=== PATIENT | female | born 1985 | race Caucasian/White ===

== ENCOUNTER 2024-05-10 01:38 | Emergency (ER) | payer OTHER, SELFPAY ==
[2024-05-10] VITALS (15 sets, daily range): BP systolic 126–178; BP diastolic 74–93; PULSE 72–94; O2SAT 96–100; BMI 29.2
--- NOTE | 2024-05-10 01:36 | ED.ABDPAIN ---
HPI - Abdominal Pain General Chief Complaint: Medical Clearance Stated Complaint: Fit for prison / 8 days post Time Seen by Provider: 05/10/24 01:55 History of Present Illness HPI narrative: Patient is a 39-year-old female with 4 C sections presenting to day by police for fit for prison. Reports that she was having burning in her scar. She is still having vaginal bleeding but reports that it is getting better. She has a history of polysubstance use had preeclampsia during this baby was delivered at 36 weeks currently still in the NICU. Records from [facility] reviewed patient was admitted May 01 with pre-eclampsia and lower extremity swelling. History of methadone use she was positive for fentanyl and amphetamine in her drug screen. She was given Mag and betamethasone. Does appear that she was prescribed nifedipine 30 mg Related Data Home Medications Medication Instructions Recorded Confirmed citalopram 20 mg tablet 20 mg PO QDAY ##0 06/13/10 Patient History Social History Smoking Status: Current every day smoker Exam Initial Vital Signs Initial Vital Signs: Vital Signs Pulse Rate 93 H 05/10/24 01:53 Pulse Oximetry 100 05/10/24 01:53 GENERAL: Alert 39-year-old disheveled female and in no acute distress. HEENT: Head atraumatic,EOMI, pupils reactive, face symmetric, moist mucous membranes CARDIOVASCULAR: Regular rate and rhythm without murmurs, rubs or gallops. RESPIRATORY: Breath sounds equal bilaterally, no wheezes rales or rhonchi. ABDOMEN: Soft, nontender. Normoactive bowel sounds all 4 quadrants. No guarding or rebound. EXTREMITIES: Normal range of motion, no clubbing or edema. Neurovascularly intact NEUROLOGICAL: Alert and oriented x4.Normal gait and speech. SKIN: incision noted with bandage still no significant drainage or erythema Course Orders Ordered: ED Orders 05/10/24 01:45 CBC Auto Diff [Complete Blood Count AUTO DIFF] Stat CMP [Comprehensive Metabolic Panel] Stat LDH [Lactate Dehydrogenase] Stat Uric Acid Stat 05/10/24 02:30 Protein Creatinine Ratio Urine Stat UA Complete [Urinalysis and Microscopic] Stat Urine Culture Stat Urine Drug Screen, Rapid Stat Discontinued Medications Labetalol HCl (Labetalol 20 Mg/4 Ml Syringe) 10 mg IV NOW ONE Stop: 05/10/24 02:31 Last Admin: 05/10/24 02:46 Dose: Not Given Documented By: Nifedipine (Nifedipine 30 Mg Tab Er) 30 mg PO NOW ONE Stop: 05/10/24 04:17 Vital Signs Vital signs: Vital Signs - 8 hr 05/10/24 01:53 05/10/24 01:54 05/10/24 01:54 Pulse Rate 93 H 83 Blood Pressure 167/90 H Pulse Oximetry 100 100 05/10/24 02:00 05/10/24 02:00 05/10/24 02:26 Pulse Rate 94 H Blood Pressure 163/92 H 154/92 H Pulse Oximetry 98 05/10/24 02:26 05/10/24 02:28 05/10/24 02:28 Pulse Rate 89 87 Blood Pressure 178/93 H Pulse Oximetry 97 99 05/10/24 02:32 05/10/24 02:33 05/10/24 02:33 Pulse Rate 83 82 Blood Pressure 168/87 H Pulse Oximetry 100 100 05/10/24 02:40 05/10/24 02:45 05/10/24 02:45 Pulse Rate 74 79 Blood Pressure 136/76 Pulse Oximetry 97 97 05/10/24 02:50 05/10/24 03:00 05/10/24 03:00 Pulse Rate 72 77 Blood Pressure 141/78 H Pulse Oximetry 98 96 05/10/24 03:10 05/10/24 03:20 05/10/24 03:25 Pulse Rate 80 72 76 Blood Pressure Pulse Oximetry 97 98 98 05/10/24 03:26 Pulse Rate Blood Pressure 126/74 Pulse Oximetry MDM - Abdominal Pain Lab Data 05/10/24 01:45 05/10/24 01:45 Labs: Lab Results 05/10/24 05/10/24 05/10/24 Range/Units 01:45 02:30 02:30 WBC 10.6 (4.5-11.0) X10^3/uL RBC 4.21 (4.0-5.2) X10^6/uL Hgb 13.4 (12.0-16.0) g/dL Hct 38.4 (36-46) % MCV 91.2 (80-100) fL MCH 31.7 (26-34) PG MCHC 34.8 (30-36) % RDW 13.1 (11.6-14.8) % Plt Count 319 (150-400) X10^3/uL Neut % (Auto) 76.4 H (50-75) % Lymph % (Auto) 16.4 L (25-40) % [place] % (Auto) 5.2 (3-14) % Eos % (Auto) 1.3 L (2-4) % Baso % (Auto) 0.7 (0-2) % Neut # (Auto) 8100 H (7107-2165) /uL Lymph # (Auto) 1700 (7273-4964) /uL [place] # (Auto) 600 (0-900) /uL Eos # (Auto) 100 (0-450) /uL Baso # (Auto) 100 (0-100) /uL Sodium 137 (137-145) mmol/L Potassium 3.8 (3.4-5.1) mmol/L Chloride 104 (98-107) mmol/L Carbon Dioxide 27 (22-32) mmol/L BUN 17 (7-17) mg/dL Creatinine 0.60 (0.52-1.04) mg/dL Estimated GFR > 60 (>60) mL/min BUN/Creatinine Ratio 28.3 H (6-22) Glucose 102 H (70-100) mg/dL Uric Acid 3.6 (2.5-6.2) mg/dL Calcium 9.4 (8.4-10.2) mg/dL Total Bilirubin 0.3 (0.2-1.3) mg/dL AST 31 (14-36) IU/L ALT 25 (<35) IU/L Alkaline Phosphatase 106 (38-126) U/L Lactate Dehydrogenase 273 H (120-246) U/L Total Protein 7.1 (6.3-8.2) g/dL Albumin 3.9 (3.5-5.0) g/dL Globulin 3.2 (1.7-4.1) g/dL Albumin/Globulin Ratio 1.2 (1.0-2.8) Urine Color Yellow Urine Appearance Clear Urine pH 7.5 Normal (4.5-8.0) Ur Specific [place] 1.020 (1.000-1.035) Urine Protein Trace H (Negative) Urine Glucose (UA) Negative (Negative) g/dL Urine Ketones Negative (NEGATIVE) Urine Occult Blood 3+ H (Negative) Urine Nitrate Negative (Negative) Urine Bilirubin Negative (NEGATIVE) Urine Urobilinogen 1.0 (0.2) E.U./dL Ur Leukocyte Esterase 1+ H (NEGATIVE) Urine RBC 1-5/hpf (0-5/HPF) Urine WBC 1-5/hpf (0-5/HPF) Ur Squamous Epith Cells 10-30 /hpf H (0-5/HPF) Urine Bacteria Moderate (10-30) H (None) Urine Mucus 1+ H (Negative) Ur Culture Indicated? Specimen cultured Vol Urine Centrifuged 10ml (spun) U Random Total Protein 23 H (0-12) mg/dL Urine Creatinine 66.18 mg/dL Protein/Creatinin Ratio 0.34 GRAM/24H U Opiates 300ng/mL cut Negative (Negative) Ur Oxycodone Screen Negative (Negative) Urine Methadone Screen Positive H (Negative) Ur Barbiturates Screen Negative (Negative) U Tricyclic Antidepress Negative (Negative) Ur Phencyclidine Scrn Negative (Negative) Ur Amphetamines Screen Negative (Negative) U Methamphetamines Scrn Positive H (Negative) Ur MDMA Scrn (Ecstasy) Negative (Negative) U Benzodiazepines Scrn Negative (Negative) Urine Cocaine Screen Negative (Negative) U Marijuana (THC) Screen Negative (Negative) Urine Specific [place] Normal (Normal) Ur Creatinine Normal (Normal) [facility] Narrative Medical decision making narrative: Patient 39-year-old female 8 days history of preeclampsia polysubstance use presenting today for medical clearance. Found to be hypertensive. Blood pressure did decrease into the 120's without intervention. Concern for pre-eclampsia vs HTN vs drug-induced Records from [facility] reviewed she was given Ob magnesium protocol. Blood work does show slightly elevated the age urine protein creatinine ratio stable0.34, electrolytes stable no leukocytosis, platelets are 310 Urine drug screen positive for methadone and methamphetamine OB, Dr. Barclay in ED to see and evaluate patient. Discussed with patient we will give her 1 dose of Procardia and then she can be discharged. No evidence of preeclampsia she is completely asymptomatic Patient unfortunately left with her IV still in place. Police were called. Ultimately patient did not let us remove the IV. She did not take the Procardia that was initially ordered. Discharge Plan Departure Patient Disposition: Left Against Medical Advice Clinical Impression: Pre-eclampsia Qualifiers: Trimester: third trimester Qualified Code(s): O14.93 - Unspecified pre-eclampsia, third trimester Instructions: Pre-eclampsia Prescriptions: No Action citalopram 20 MG tablet 20 mg PO QDAY Qty: 0 Stand Alone Forms: Patient Portal/API, Against Medical Advice, Patient Portal/API/Survey
[2024-05-10 02:06] LABS: Add Manual Diff / Slide Review NO; Basophils Absolute Auto 100 /uL (0-100); Basophils Percent Auto 0.7 % (0-2); Eosinophils Absolute Auto 100 /uL (0-450); Eosinophils Percent Auto 1.3 % (2-4); Hematocrit 38.4 % (36-46); Hemoglobin 13.4 g/dL (12.0-16.0); Lymphocytes Absolute Auto 1700 /uL (1100-4500); Lymphocytes Percent Auto 16.4 % (25-40); Mean Corpuscular HGB Conc 34.8 % (30-36); Mean Corpuscular Hemoglobin 31.7 PG (26-34); Mean Corpuscular Volume 91.2 fL (80-100); Monocytes Absolute Auto 600 /uL (0-900); Monocytes Percent Auto 5.2 % (3-14); Neutrophils Absolute Auto 8100 /uL (1500-7000); Neutrophils Percent Auto 76.4 % (50-75); Platelet Count 319 X10^3/uL (150-400); Red Blood Cell Count 4.21 X10^6/uL (4.0-5.2); Red Cell Distribution Width 13.1 % (11.6-14.8); White Blood Cell Count 10.6 X10^3/uL (4.5-11.0)
[2024-05-10 02:18] LABS: Alanine Aminotransferase 25 IU/L (<35); Albumin 3.9 g/dL (3.5-5.0); Albumin Globulin Ratio 1.2 (1.0-2.8); Alkaline Phosphatase 106 U/L (38-126); Aspartate Aminotransferase 31 IU/L (14-36); BUN Creatinine Ratio 28.3 (6-22); Bilirubin Total 0.3 mg/dL (0.2-1.3); Blood Urea Nitrogen 17 mg/dL (7-17); Calcium 9.4 mg/dL (8.4-10.2); Carbon Dioxide 27 mmol/L (22-32); Chloride 104 mmol/L (98-107); Estimated Glomerular Filt Rate > 60 mL/min (>60); Globulin 3.2 g/dL (1.7-4.1); Glucose 102 mg/dL (70-100); HEMOLYSIS < 15 (0-50); Potassium 3.8 mmol/L (3.4-5.1); Sodium 137 mmol/L (137-145); Total Protein 7.1 g/dL (6.3-8.2); Uric Acid 3.6 mg/dL (2.5-6.2)
[2024-05-10 02:42] LABS: Appearance Urine UA CLEAR; Bilirubin Urine UA NEGATIVE (NEGATIVE); Color Urine UA YELLOW; Glucose Urine UA NEGATIVE (Negative); Ketones Urine UA NEGATIVE (NEGATIVE); Leukocyte Esterase Urine UA 1+ (NEGATIVE); Nitrite Urine UA NEGATIVE (Negative); Occult Blood Urine UA 3+ (Negative); Protein Urine UA TRACE (Negative)
[2024-05-10 02:44] LABS: UR Morphine/Opiate cutoff 300 Negative (Negative); Ur Creatinine Normal (Normal); Ur Specific Gravity Normal (Normal); Urine Amphetamines Negative (Negative); Urine Barbiturates Negative (Negative); Urine Benzodiazepines Negative (Negative); Urine Cocaine Negative (Negative); Urine MDMA Negative (Negative); Urine Methadone Positive (Negative); Urine Methamphetamines Positive (Negative); Urine Oxycodone Negative (Negative); Urine Phencyclidine Negative (Negative); Urine Tetrahydrocannabinol Negative (Negative); Urine Tricyclic Antidepressant Negative (Negative); Urine pH Normal (Normal)
[2024-05-10 02:45] LABS: Bacteria Urine Moderate (10-30); RBC Urine 1-5/HPF (0-5/HPF); Urine Volume 10mL (spun); WBC Urine 1-5/HPF (0-5/HPF); pH Urine UA 7.5 (4.5-8.0)
[2024-05-10 02:46] LABS: Culture Indicated Urine Specimen Cultured; Mucus Urine 1+ (Negative); Squamous Epithelial Cell Urine 10-30 /HPF (0-5/HPF)
[2024-05-10 02:55] LABS: Creatinine Urine Random 66.18 mg/dL; Protein (Total) Urine Random 23 mg/dL (0-12); Protein Creatinine Ratio Urine 0.34 GRAM/24H
[2024-05-10 03:14] LABS: Lactate Dehydrogenase 273 U/L (120-246)
--- NOTE | 2024-05-10 04:00 | P.CONS_ITS ---
History of Present Illness <Sohail Montgomery MD - Last Filed: 05/13/24 07:52> Consult details Date Patient Seen: 05/10/24 Time Patient Seen: 04:00 Chief complaint: Fit for alf / 8 days post Reason for consult: PP medical clearance Requesting provider: Prerna Valerio Narrative: 39-year-old brought in by a PD for medical clearance at 8 days following repeat low transverse . She has no complaints this morning. Blood pressure on arrival was elevated but she was brought in by the police. Situation for being brought in is unknown. Based on outside records, concern for substance use. She was seen at [facility] and found to have elevated blood pressures and leg swelling on 05/01 and was counseled to be seen labor and delivery for further management. Patient left but later returned and required an emergency . Patient does have a history of 2 prior C- sections. She received magnesium for management of preeclampsia. Per the available note she was started on labetalol but patient notes that she was taking medication once a day, not sure of the name. After showing her pictures of pills she recognizes Procardia 30 mg XR. Her medications are in her car but not available. She is unclear exactly when she took her last dose of Procardia. She is also on methadone not clear if her last dose of this either. Her last substance use was around 9:00 but unsure if this was in the morning or evening or which today. She is not experiencing any pre-eclampsia symptoms at this time. Per pt, she was discharged to detox from [facility] after her delivery but <Geeta Shah MD - Last Filed: 05/10/24 04:58> Consult details Narrative: 39-year-old brought in by a PD for medical clearance at 8 days following repeat low transverse . She has no complaints this morning. Blood pressure on arrival was elevated but she was brought in by the police. Situation for being brought in is unknown. Based on outside records, concern for substance use. She was seen at [facility] and found to have elevated blood pressures and leg swelling on 05/01 and was counseled to be seen labor and delivery for further management. Patient left but later returned and required an emergency . Patient does have a history of 2 prior C- sections. She received magnesium for management of preeclampsia. Per the available note she was started on labetalol but patient notes that she was taking medication once a day, not sure of the name. After showing her pictures of pills she recognizes Procardia 30 mg XR. Her medications are in her car but not available. She is unclear exactly when she took her last dose of Procardia. She is also on methadone not clear if her last dose of this either. Her last substance use was around 9:00 but unsure if this was in the morning or evening or which today. She is not experiencing any pre-eclampsia symptoms at this time. Per pt, she was discharged to detox from [facility] after her delivery but has resumed use since that time. She does not desire admission today and is wanting to leave. Not sure if she has any tabs of Nifedipine left as meds are in her car. She does not have a primary care doctor Meds <Sohail Montgomery MD - Last Filed: 05/13/24 07:52> Home Medications and Allergies Home Medications Medication Instructions Recorded Confirmed Type citalopram 20 mg tablet 20 mg PO QDAY ##0 06/13/10 History nifedipine 30 mg tablet,extended 30 mg PO DAILY #30 tabs 05/10/24 Rx release 24 hr (Procardia XL) Review of Systems <Sohail Montgomery MD - Last Filed: 05/13/24 07:52> Review of Systems Narrative: - SUAZO - vision changes - nausea - vomiting - leg swelling - SOB - Chest pain + incision pain Exam <Sohail Montgomery MD - Last Filed: 05/13/24 07:52> Vital Signs (past 8 hours): - 05/10/24 01:53 05/10/24 01:54 05/10/24 01:54 Pulse Rate 93 H 83 Blood Pressure 167/90 H Pulse Oximetry 100 100 05/10/24 02:00 05/10/24 02:00 05/10/24 02:26 Pulse Rate 94 H Blood Pressure 163/92 H 154/92 H Pulse Oximetry 98 05/10/24 02:26 05/10/24 02:28 05/10/24 02:28 Pulse Rate 89 87 Blood Pressure 178/93 H Pulse Oximetry 97 99 05/10/24 02:32 05/10/24 02:33 05/10/24 02:33 Pulse Rate 83 82 Blood Pressure 168/87 H Pulse Oximetry 100 100 05/10/24 02:40 05/10/24 02:45 05/10/24 02:45 Pulse Rate 74 79 Blood Pressure 136/76 Pulse Oximetry 97 97 05/10/24 02:50 05/10/24 03:00 05/10/24 03:00 Pulse Rate 72 77 Blood Pressure 141/78 H Pulse Oximetry 98 96 05/10/24 03:10 05/10/24 03:20 05/10/24 03:25 Pulse Rate 80 72 76 Blood Pressure Pulse Oximetry 97 98 98 05/10/24 03:26 Pulse Rate Blood Pressure 126/74 Pulse Oximetry Narrative Exam Narrative: GEN: Patient sleeping, does not wake to voice, after shaking her arm, does awaken Eyes: EOMI CV: RRR, no murmurs Pulm: CTAB ABd: Dressing with scant appearing drainage surrounded by marker and not extending beyond the borders, fundus firm and below the umbilicus, no tenderness noted Legs: Scant symmetric edema, per pt significantly improved from prior Objective <Sohail Montgomery MD - Last Filed: 05/13/24 07:52> Labs 05/10/24 01:45 05/10/24 01:45 Labs: Laboratory Results - last 24 hr 05/10/24 05/10/24 05/10/24 01:45 02:30 02:30 WBC 10.6 RBC 4.21 Hgb 13.4 Hct 38.4 MCV 91.2 MCH 31.7 MCHC 34.8 RDW 13.1 Plt Count 319 Neut % (Auto) 76.4 H Lymph % (Auto) 16.4 L [place] % (Auto) 5.2 Eos % (Auto) 1.3 L Baso % (Auto) 0.7 Neut # (Auto) 8100 H Lymph # (Auto) 1700 [place] # (Auto) 600 Eos # (Auto) 100 Baso # (Auto) 100 Sodium 137 Potassium 3.8 Chloride 104 Carbon Dioxide 27 BUN 17 Creatinine 0.60 Estimated GFR > 60 BUN/Creatinine Ratio 28.3 H Glucose 102 H Uric Acid 3.6 Calcium 9.4 Total Bilirubin 0.3 AST 31 ALT 25 Alkaline Phosphatase 106 Lactate Dehydrogenase 273 H Total Protein 7.1 Albumin 3.9 Globulin 3.2 Albumin/Globulin Ratio 1.2 Urine Color Yellow Urine Appearance Clear Urine pH 7.5 Normal Ur Specific [place] 1.020 Urine Protein Trace H Urine Glucose (UA) Negative Urine Ketones Negative Urine Occult Blood 3+ H Urine Nitrate Negative Urine Bilirubin Negative Urine Urobilinogen 1.0 Ur Leukocyte Esterase 1+ H Urine RBC 1-5/hpf Urine WBC 1-5/hpf Ur Squamous Epith Cells 10-30 /hpf H Urine Bacteria Moderate (10-30) H Urine Mucus 1+ H Ur Culture Indicated? Specimen cultured Vol Urine Centrifuged 10ml (spun) U Random Total Protein 23 H Urine Creatinine 66.18 Protein/Creatinin Ratio 0.34 U Opiates 300ng/mL cut Negative Ur Oxycodone Screen Negative Urine Methadone Screen Positive H Ur Barbiturates Screen Negative U Tricyclic Antidepress Negative Ur Phencyclidine Scrn Negative Ur Amphetamines Screen Negative U Methamphetamines Scrn Positive H Ur MDMA Scrn (Ecstasy) Negative U Benzodiazepines Scrn Negative Urine Cocaine Screen Negative U Marijuana (THC) Screen Negative Urine Specific [place] Normal Ur Creatinine Normal PFSH <Sohail Montgomery MD - Last Filed: 05/13/24 07:52> Tobacco & Substance Use Smoking Status: Current every day smoker Assessment & Plan <Sohail Montgomery MD - Last Filed: 05/13/24 07:52> Assessment and plan (1) Pre-eclampsia: Qualifiers: Trimester: third trimester Qualified Code(s): O14.93 - Unspecified pre- eclampsia, third trimester Status: Acute (2) Polysubstance abuse: Status: Acute Plan 39-year-old brought in by a PD for medical clearance at 8 days following repeat low transverse . On arrival, blood pressure is elevated but patient was somewhat agitated after being brought in by the police. With time and after police left, blood pressures improved. Unclear when her last dose of antihypertensive was taken, pt stating maybe last night. Urine drug screen also positive for methadone and amphetamine. Urine PC was collected but was not a straight cath and was mild elevated to a lower level than at her hospital admission at [facility]. Suspect that blood pressure with elevated today based on acute stress of being brought in by police and potentially by recent amphetamine use. Recommended giving a dose of Procardia here and ensuring was tolerated but patient eloped while awaiting this dose. Also recommended abdominal binder for mild incisional pain but she left before this was available. We discussed removal of her dressing and she declined. Patient requested to be discharged but eloped while awaiting recommended medications. AT this time, no complaints and no pre-E sx. Time-Based Coding :: [TOTAL MINUTES] spent with patient and on the chart (including review of chart, obtaining history, exam, reviewing outside data, placing orders, documenting exam and treatment plan, and counseling patient) on [DATE]. <Geeta Shah MD - Last Filed: 05/10/24 04:58> Assessment and plan (1) Pre-eclampsia: (2) Polysubstance abuse: Plan 39-year-old brought in by a PD for medical clearance at 8 days following repeat low transverse . On arrival, blood pressure is elevated but patient was somewhat agitated after being brought in by the police. With time and after police left, blood pressures improved. Unclear when her last dose of antihypertensive was taken, pt stating maybe last night. Urine drug screen also positive for methadone and amphetamine. Urine PC was collected but was not a straight cath and was mild elevated to a lower level than at her hospital admission at [facility]. Suspect that blood pressure with elevated today based on acute stress of being brought in by police and potentially by recent amphetamine use. Recommended giving a dose of Procardia here and ensuring was tolerated but patient eloped while awaiting this dose. Also recommended abdominal binder for mild incisional pain but she left before this was available. We discussed removal of her dressing and she declined. Patient requested to be discharged but eloped while awaiting recommended medications. At this time, no complaints and no pre-E sx. - refill of procardia sent - recommend finding PCP to assist with BP management - recommended procardia dose before leaving but pt left before could be given Time-Based Coding :: 60 spent with patient and on the chart (including review of chart, obtaining history, exam, reviewing outside data, placing orders, documenting exam and treatment plan, and counseling patient) on 05/10.
--- NOTE | 2024-05-10 04:25 | PC.NURSE ---
Dr. Shah exits pt room. Pt noted to be out of stretcher putting on clothes. Requested pt wait since more medication had been ordered and new vs would need to be recorded. Pt walks passed RN and attempts to walk out of the department. RN requests to remove IV. Pt ignores RN and continues to walk out of department. Pt then informed that law enforcement would be contacted if she left with IV in place. Pt continued to leave department. Law enforcement contacted at this time. hot cell technician followed pt out of department, pt allowed tech to remove IV then continued out of hospital at this time. Dr. Valerio and Dr. Shah witnessed event and aware.
== END 2024-05-10 04:36 | disposition left against medical advice (07) ==
PROVIDERS: Emergency Provider Emergency Medicine
DX: O14.95 Unspecified pre-eclampsia, complicating the puerperium (principal); F19.10 Other psychoactive substance abuse, uncomplicated
CPT/HCPCS: 36415; 80053; 80305; 81001; 82570; 83615; 84156; 84550; 85025; 87086; 99282; 99283